=== PATIENT | female | born 1955 | race Caucasian/White ===

== ENCOUNTER 2022-10-10 13:39 | Inpatient (IN) | payer BC, OTHER ==
[~2022-10-10] VITALS: Ht 165.1 cm; Wt 60.8 kg
[2022-10-10 15:40] VITALS: BP_SYST 120
--- NOTE | 2022-10-10 15:44 | NUR ---
Patient triaged and placed in waiting room. VSS and patient appears in no acute distress at this time. Accompanied by SELF, awaiting available bed, and MD notified of need for MSE.
--- NOTE | 2022-10-10 16:30 | NUR ---
ER at bedside examining patient.
[2022-10-10] MEDS ORDERED: ONDANSETRON HCL 4 MG/2 ML VIAL IVP ONE ×2 (17:00→20:15)
[2022-10-10] MEDS ORDERED: PANTOPRAZOLE SODIUM 80 MG in NS 100 ML IV ONE (17:00)
[2022-10-10 17:28] LABS: BASOPHILS % (AUTO) 0.3 % (0.0-2.0); EOSINOPHILS # (AUTO) 0.1 K/uL (0.0-0.4); EOSINOPHILS % (AUTO) 1.1 % (0.0-4.0); HEMATOCRIT 49.1 % (36-48); HEMOGLOBIN 16.7 g/dL (12.0-16.0); LYMPHOCYTES # (AUTO) 3.4 K/uL (1.0-5.5); LYMPHOCYTES % (AUTO) 32.5 % (20.5-51.5); MEAN CORPUSCULAR HEMOGLOBIN 30 pg (27-31); MEAN CORPUSCULAR HGB CONC 34 % (32-36); MEAN CORPUSCULAR VOLUME 88 fL (79.0-98.0); MONOCYTES # (AUTO) 0.9 K/uL (0.0-1.0); MONOCYTES % (AUTO) 8.8 % (1.7-9.3); NEUTROPHILS # (AUTO) 5.9 K/uL (1.8-7.7); NEUTROPHILS % (AUTO) 57.3 % (40.0-70.0); PLATELET COUNT (AUTO) 285 K/uL (130-430); RED BLOOD CELL COUNT(AUTO) 5.57 MIL/uL (4.2-6.2); RED CELL DISTRIBUTION WIDTH 14.3 % (9.0-15.0); WHITE BLOOD COUNT (AUTO) 10.3 K/uL (4.8-10.8)
[2022-10-10 17:44] LABS: INR 1.2 (0.8-1.2); PROTHROMBIN TIME 11.8 SECS (9.5-12.5)
[2022-10-10 17:46] LABS: CALCIUM 8.2 mg/dL (8.4-11.0); CREATININE 0.99 mg/dL (0.55-1.30)
[2022-10-10 17:51] LABS: ALBUMIN 2.9 g/dL (3.4-4.8); TOTAL BILIRUBIN 0.9 mg/dL (0.0-1.0)
--- NOTE | 2022-10-10 18:38 | NUR ---
Patient to ER bed 2 to gown for evaluation. Side rails up. Report given to ORLANDO REY.
--- NOTE | 2022-10-10 18:45 | NUR ---
PT BIB AWAKE AND ALERT AOX4. PT C/O AB PAIN FOR X4 DAYS. PAIN 7/10. PT STATES SHE HAS N/V AND BLACK TARRY STOOL. PT HAS HX OF HESTERECTOMY AND OSTEOARTHITIS.
[2022-10-10 19:17] LABS: BILIRUBIN,URINE 2+ (NEGATIVE); BLOOD, URINE NEGATIVE (NEGATIVE); CLARITY/URINE CLEAR (CLEAR); COLOR,URINE YELLOW (YELLOW); GLUCOSE,URINE NEGATIVE (NEGATIVE); KETONES,URINE 3+ (NEGATIVE); NITRITE, URINE NEGATIVE (NEGATIVE); PROTEIN URINE TRACE (NEGATIVE); UROBILINOGEN,URINE 0.2 (0.2-1.0)
--- NOTE | 2022-10-10 19:25 | NUR ---
REPORT GIVEN TO NORRIS REY. PT STABLE
[2022-10-10 19:38] LABS: LEUKOCYTE ESTERASE ,URINE 1+ (NEGATIVE)
[2022-10-10 19:40] LABS: RBC,URINE 0-3 /HPF (0-3)
[2022-10-10 19:41] LABS: BACTERIA,URINE FEW /HPF (None Seen); MUCUS,URINE 1+ /LPF (None Seen)
[2022-10-10] MEDS ORDERED: NACL 0.9% 1,000 ML IV ONE (19:45)
[2022-10-10] MEDS ORDERED: MORPHINE 4 MG INJ. 4 MG/ML VIAL IVP ONE (20:15)
[2022-10-10] MEDS ORDERED: LORazepam 2 MG/ML VIAL IVP PRN (21:00)
[2022-10-10] MEDS ORDERED: ACETAMINOPHEN 325 MG TABLET PO PRN (21:00)
[2022-10-10] MEDS ORDERED: MAGNESIUM SULFATE 50 ML IV PRN (21:00)
[2022-10-10] MEDS ORDERED: DOCUSATE SODIUM 100 MG CAPSULE PO PRN (21:00)
[2022-10-10] MEDS ORDERED: ZOLPIDEM TARTRATE 5 MG TABLET PO PRN (21:00)
[2022-10-10] MEDS ORDERED: ONDANSETRON HCL 4 MG/2 ML VIAL IVP PRN (21:00)
[2022-10-10] MEDS ORDERED: MUPIROCIN 2% TOPICAL OINTMENT 22 GM NS PRN (21:00)
[2022-10-10] MEDS ORDERED: POTASSIUM CHLORIDE 20 MEQ TAB.PRT.SR PO PRN (21:00)
[2022-10-10] MEDS ORDERED: MORPHINE 2 MG/ML INJ. SYRINGE IVP PRN ×2 (21:00)
--- NOTE | 2022-10-10 21:10 | NUR ---
Admit bed requested Patient will be admitted to care of Krishna Lafleur Admitted to MED SURG unit. Diagnosis GASTRIC ULCER Inpatient (Yes or No) YES Observation (Yes or No) NO Orientation concerns or request close to nursing station (Yes or No) NO Covid Status PENDING On vent or bipap NO Isolation requirements NO Needs a sitter NO From Home (Yes or if No enter name of facility) YES Requires Dialysis (Yes or No) NO Med Rec Completed (Yes of No) NO
--- NOTE | 2022-10-10 21:25 | NUR ---
Covid swab collected and sent to lab.
[2022-10-10] MEDS ORDERED: PANTOPRAZOLE SODIUM 40 MG/VIAL (PROTONIX) ONE (21:46)
[2022-10-10] MEDS: PANTOPRAZOLE SODIUM 40 MG/VIAL (PROTONIX) IVP SCH (23:05)
[2022-10-10] MEDS: D5NS 1,000 ML IV SCH (23:06)
--- NOTE | 2022-10-10 23:15 | NUR ---
Patient will be admitted to care of MD DALY. Admitted to MED SURG unit. Will go to room 101B. Complete and up to date summary report printed. SBAR report given at bedside to KRISSY Cha with opportunity for questions.
--- NOTE | 2022-10-10 23:20 | NUR ---
Medication reconciliation completed with information provided by pt . Any prior medication reconciliation on file was reviewed and corrected.
[2022-10-10] MEDS ORDERED: ALEN70TA84 PO (23:37)
[2022-10-10 23:50] VITALS: BP_SYST 132
[2022-10-10 23:57] VITALS: BP_SYST 137
--- NOTE | 2022-10-11 06:45 | NUR ---
Called Dr. Martin regarding Diet, inform me that there is no diet at this time, stated that patient came in for Gastric Ulcer
[2022-10-11 07:04] LABS: CALCIUM 7.1 mg/dL (8.4-11.0); CREATININE 0.72 mg/dL (0.55-1.30)
--- NOTE | 2022-10-11 07:29 | NUR ---
CLOSING NOTES Pt is sleeping comfortably, no s/s of any distress, no N/V during shift, encourage to use call light, bed at lowest position, safety bed lock in place, call light within reach.
[2022-10-11 07:36] LABS: BASOPHILS % (AUTO) 0.2 % (0.0-2.0); EOSINOPHILS # (AUTO) 0.2 K/uL (0.0-0.4); EOSINOPHILS % (AUTO) 2.2 % (0.0-4.0); HEMATOCRIT 39.7 % (36-48); HEMOGLOBIN 13.6 g/dL (12.0-16.0); LYMPHOCYTES # (AUTO) 3.3 K/uL (1.0-5.5); LYMPHOCYTES % (AUTO) 43.4 % (20.5-51.5); MEAN CORPUSCULAR HEMOGLOBIN 30 pg (27-31); MEAN CORPUSCULAR HGB CONC 34 % (32-36); MEAN CORPUSCULAR VOLUME 87 fL (79.0-98.0); MONOCYTES # (AUTO) 0.7 K/uL (0.0-1.0); MONOCYTES % (AUTO) 9.1 % (1.7-9.3); NEUTROPHILS # (AUTO) 3.4 K/uL (1.8-7.7); NEUTROPHILS % (AUTO) 45.1 % (40.0-70.0); PLATELET COUNT (AUTO) 217 K/uL (130-430); RED BLOOD CELL COUNT(AUTO) 4.56 MIL/uL (4.2-6.2); RED CELL DISTRIBUTION WIDTH 14.1 % (9.0-15.0); WHITE BLOOD COUNT (AUTO) 7.6 K/uL (4.8-10.8)
[2022-10-11 08:00] VITALS: BP_SYST 106
[2022-10-11] MEDS: cefTRIAXone 1 GM in D5W 50 ML IV SCH (08:49)
[2022-10-11] MEDS: PANTOPRAZOLE SODIUM 40 MG/VIAL (PROTONIX) IVP SCH ×2 (08:49→21:15)
[2022-10-11 12:00] VITALS: BP_SYST 119
[2022-10-11 16:00] VITALS: BP_SYST 117
--- NOTE | 2022-10-11 17:32 | NUR ---
Shift Summary: patient is AAOX4. vitals are stable. patient and family updated on plan of care. consent for EGD signed. patient aware of NPO order at midnight to prepare for procedure tomorrow. patient and family state they have no questions or concerns at this time. will continue to monitor. bernice light within reach, bed set to low and locked.
[2022-10-11 20:00] VITALS: BP_SYST 121
[2022-10-11] MEDS: D5NS 1,000 ML IV SCH ×2 (20:47)
[2022-10-12] VITALS: BP_SYST 118
--- NOTE | 2022-10-12 06:23 | NUR ---
CLOSING NOTES Pt is sleeping comfortably, pt aware of EGO for this morning, NPO after midnight. encourage to use call light, bed at lowest position, safety bed lock in place, call light within reach.
[2022-10-12 07:01] LABS: BASOPHILS # (AUTO) 0.1 K/uL (0.0-0.2); BASOPHILS % (AUTO) 1.4 % (0.0-2.0); EOSINOPHILS # (AUTO) 0.2 K/uL (0.0-0.4); EOSINOPHILS % (AUTO) 3.5 % (0.0-4.0); HEMATOCRIT 38.8 % (36-48); HEMOGLOBIN 13.2 g/dL (12.0-16.0); LYMPHOCYTES # (AUTO) 2.5 K/uL (1.0-5.5); LYMPHOCYTES % (AUTO) 36.4 % (20.5-51.5); MEAN CORPUSCULAR HEMOGLOBIN 30 pg (27-31); MEAN CORPUSCULAR HGB CONC 34 % (32-36); MEAN CORPUSCULAR VOLUME 87 fL (79.0-98.0); MONOCYTES # (AUTO) 0.5 K/uL (0.0-1.0); MONOCYTES % (AUTO) 7.6 % (1.7-9.3); NEUTROPHILS # (AUTO) 3.5 K/uL (1.8-7.7); NEUTROPHILS % (AUTO) 51.1 % (40.0-70.0); PLATELET COUNT (AUTO) 229 K/uL (130-430); RED BLOOD CELL COUNT(AUTO) 4.45 MIL/uL (4.2-6.2); RED CELL DISTRIBUTION WIDTH 14.4 % (9.0-15.0); WHITE BLOOD COUNT (AUTO) 6.8 K/uL (4.8-10.8)
[2022-10-12 07:09] LABS: CALCIUM 7.5 mg/dL (8.4-11.0); CREATININE 0.63 mg/dL (0.55-1.30)
[2022-10-12 08:00] VITALS: BP_SYST 104
[2022-10-12] MEDS: cefTRIAXone 1 GM in D5W 50 ML IV SCH (08:48)
[2022-10-12] MEDS: PANTOPRAZOLE SODIUM 40 MG/VIAL (PROTONIX) IVP SCH (08:48)
--- NOTE | 2022-10-12 10:10 | NUR ---
Shift Summary: patient is AAOX4. vitals are stable. patient updated on plan of care for shift. patient states shes been NPO since midnight pending procedure. patient educated on using call light if patient needs to ambulate to prevent falls. patient states she understands and has no questions or concerns at this time. will continue to monitor. call light within reach, bed set to low.
[2022-10-12] MEDS: D5NS 1,000 ML IV SCH (10:30)
[2022-10-12] MEDS ORDERED: MEPERIDINE 50 MG/ML VIAL ONE (11:16)
[2022-10-12] MEDS ORDERED: MIDAZOLAM HCL 5 MG/5 ML VIAL ONE (11:17)
[2022-10-12 12:25] VITALS: BP_SYST 109
--- NOTE | 2022-10-12 12:35 | NUR ---
Dietitian Recommendations * Continue GI soft diet * Ordered: Ensure BID (provides 700kcal and 26 g PRO) * Encourage good PO intake GS, MPH, RD Please refer to RD Assessment for further details. Thanks! Addendum: 10/12/22 at [address] Amended: Links added.
[2022-10-12] MEDS ORDERED: PRO40 PO (12:58)
[2022-10-12 15:53] VITALS: BP_SYST 125
[2022-10-12 16:00] VITALS: BP_SYST 125
--- NOTE | 2022-10-12 16:36 | NUR ---
[facility]/HCP CM MS VASQUEZ GAVE THE INFO FOR HOME HEALTH: [facility] , TEL # [phone] APPT WITH PRIMARY MD DR GODINEZ WAS ARRANGED TOO, ON OCTOBER 14, 2022 AT 1430. KRISSY GARRETT NOTIFIED.
--- NOTE | 2022-10-12 17:44 | NUR ---
discharge Summary: patient is AAOX4. vitals are stable. PIV removed per order. patient given discharge instructions regarding activity, diet, follow up appointment and medication. patient states she has no questions or concerns upon discharge. patient states she has all of her personal belongings with her upon discharge. patient leaving unit on wheelchair with assistance from staff.
== END 2022-10-12 17:54 | disposition home or self-care (01) | DRG 378 ==
LOC: SED 13:39 → SMU 20:50
PROVIDERS: ADMIT Internal Medicine; ATTEND Internal Medicine
PROC: 0DB98ZX Excision of Duodenum, Via Natural or Artificial Opening Endoscopic, Diagnostic (ICD-10-PCS; principal; 2022-10-12 11:30)
DX: K26.4 Chronic or unspecified duodenal ulcer with hemorrhage (principal); E87.20 Acidosis, unspecified; N39.0 Urinary tract infection, site not specified; Z20.822 Contact with and (suspected) exposure to COVID-19; K52.9 Noninfective gastroenteritis and colitis, unspecified; M81.0 Age-related osteoporosis without current pathological fracture; E87.6 Hypokalemia; K25.9 Gastric ulcer, unspecified as acute or chronic, without hemorrhage or perforation; K29.70 Gastritis, unspecified, without bleeding; K29.80 Duodenitis without bleeding; Z90.710 Acquired absence of both cervix and uterus; Z80.0 Family history of malignant neoplasm of digestive organs; Z79.899 Other long term (current) drug therapy
CPT/HCPCS: 36415; 43239; 71045; 76376; 80048; 80053; 81000; 83037; 83605; 83690; 83735; 85025; 85610-TC; 85730-TC; 87040; 87081; 87086; 88305; 88312; 88313; 96365; 96375; 99285; C9113; J0696; J2175; J2250; J2270; J2405; J7060